=== PATIENT | female | born 1990 | race Caucasian/White ===

== ENCOUNTER 2020-03-18 09:09 | Outpatient (CLI) | payer OTHER, SELFPAY ==
--- NOTE | ~2020-03-18 | US_ITS ---
EXAMINATION: US pelvic complete w TV DATE: 03/18/2020 09:54 INDICATION: Missing IUD strings TECHNIQUE: Multiple transabdominal and endovaginal sonographic images of the pelvis were obtained. COMPARISON: 10/29/2015 FINDINGS: The uterus measures 9 x 3.3 x 4.2 cm. The endometrial complex measures 4 mm. An IUD is pres ent in the uterus in expected position. The right ovary measures 3.4 x 2.2 x 2.7 cm. The left ovary m easures 2.1 x 2.2 x 2.5 cm. There is normal vascular flow in the ovaries. There is no free fluid in t he pelvis. IMPRESSION: 1. IUD in expected position. Reviewed, dictated and finalized at location A.
== END 2020-03-18 09:10 | disposition home or self-care (01) ==
PROVIDERS: PCP Physician Assistant; Visit Provider Nurse Practitioner
DX: Z30.431 Encounter for routine checking of intrauterine contraceptive device (principal)
CPT/HCPCS: 76830; 76856

== ENCOUNTER 2021-05-09 19:56 | Outpatient (CLI) | payer OTHER, SELFPAY ==
--- NOTE | ~2021-05-09 | XR_ITS ---
EXAMINATION: XR foot RT min 3V DATE: 05/09/2021 20:14 INDICATION: Right foot dorsal pain. TECHNIQUE: 4 views of right foot were obtained. COMPARISON: None. FINDINGS: Bone alignment is normal. No fracture. Joint spaces are well maintained. IMPRESSION: 1. Normal right foot. Reviewed, dictated and finalized at location A. IMPRESSION: 1. Normal right foot.
== END 2021-05-09 19:57 | disposition home or self-care (01) ==
LOC: CHSIMG 19:58
PROVIDERS: PCP Physician Assistant; Visit Provider Physician Assistant
DX: M79.671 Pain in right foot (principal)
CPT/HCPCS: 73630

== ENCOUNTER 2021-11-11 12:03 | Outpatient (CLI) | payer OTHER, SELFPAY ==
[2021-11-11 12:19] LABS: Basophils Absolute Auto 0.04 K/mm3 (0.00-0.10); Basophils Percent Auto 0.3 % (0.0-1.0); Eosinophils Absolute Auto 0.14 K/mm3 (0.02-0.50); Hematocrit 35.4 % (35.0-49.0); Immature Granulocyte Absolute 0.06 K/mm3 (0.00-0.00); Immature Granulocyte Percent A 0.4 % (0.0-0.0); Lymphocytes Absolute Auto 1.47 K/mm3 (1.10-4.50); Lymphocytes Percent Auto 10.7 % (18.0-42.0); Mean Corpuscular HGB Conc 33.9 g/dL (32.0-36.0); Mean Corpuscular Hemoglobin 31.3 pg (27.0-31.0); Mean Corpuscular Volume 92.2 fL (78.0-102.0); Mean Platelet Volume 9.6 fl (9.2-11.8); Monocytes Absolute Auto 0.63 K/mm3 (0.10-0.90); Monocytes Percent Auto 4.6 % (2.0-11.0); Neutrophils Absolute Auto 11.5 K/mm3 (1.7-7.2); Platelet Count Result 181 K/mm3 (150-420); Red Blood Count 3.84 M/mm3 (4.20-5.40); Red Cell Distribution Width 13.1 % (11.6-14.4); White Blood Count 13.8 K/mm3 (4.8-10.8)
[2021-11-11 12:28] LABS: Hemoglobin A1C 5.2 % (<5.7)
[2021-11-11 13:25] LABS: HIV 1 P24 AG Negative (Negative); HIV 1/2 AB Negative (Negative)
[2021-11-15 12:59] LABS: Rubella IgG Antibody 1.05 Index
[2021-11-15 13:54] LABS: RPR Screen Non-Reactive (Non-Reactive)
[2021-11-15 14:32] LABS: Vitamin D 25 Hydroxy 35 ng/mL (30-100)
[2021-11-16 03:42] LABS: Hepatitis B Surface Antigen Nonreactive (Nonreactive); Hepatitis C Signal to Cutoff 0.01 ratio (<1.00); Hepatitis C Virus Antibody Nonreactive (Nonreactive)
== END 2021-11-11 12:04 | disposition home or self-care (01) ==
LOC: CHSLAB 12:05
PROVIDERS: PCP Physician Assistant; Visit Provider Obstetrics & Gynecology Gynecology
DX: Z36.9 Encounter for antenatal screening, unspecified (principal)
CPT/HCPCS: 36415; 82306; 83036; 85025; 86592; 86703; 86762; 86850; 86900; 86901

== ENCOUNTER 2021-11-15 14:51 | Outpatient (CLI) | payer OTHER, SELFPAY ==
--- NOTE | ~2021-11-15 | US_ITS ---
EXAMINATION: US OB /maternal detail DATE: 11/15/2021 15:37 INDICATION: Uncertain dating of . OB anatomy. TECHNIQUE: Multiple obstetric sonographic images performed. FINDINGS: There is a single living fetus in breech presentation. The placenta is anterior fundal. Normal amnio tic fluid volume. JENSEN measures 13.6 cm. Which is normal. (5th%-95%: 9.3-21.2 cm at 20 weeks estimate d gestational age) heart rate of 155 beats per minute. The following anatomy was identified as normal: Ventricles, choroid plexus, falx and cava septum pellucidum Cerebellum and cisterna magna Nuchal fold Upper lip Spine Heart Diaphragm Stomach Kidneys Bladder 3 vessel cord and cord insertion Bilateral upper and lower extremities including hands and feet The following biometric data were obtained: BPD: 4.8 cm -> 20 weeks 4 days Head circumference: 18.0 cm -> 20 weeks 3 days Abdominal circumference: 15.3 cm -> 20 weeks 3 days Femur length: 3.3 cm -> 20 weeks 3 days These measurements are concordant. Head circumference to abdominal circumference ratio: 1.17 (normal range 1.07-1.25). Estimated weight: 355 g (+/-) 53 g. or 13 oz. (+/-) 2 oz. IMPRESSION: 1. Single living fetus with breech presentation with heart rate of 155 bpm. 2. Gestational age by ultrasound of 20 weeks 3 day(s) (+/-) 1 week 3 day(s) with ultrasound estimat ed date of delivery (FRED) of 04/01/2022. Please correlate with clinical information or earlier ultraso unds for most accurate FRED. 3. Normal survey. 4. Normal amniotic fluid index of 13.6 cm Reviewed, dictated and finalized at location A. STRIPPER IMPRESSION: 1. Single living fetus with breech presentation with heart rate of 155 b pm. 2. Gestational age by ultrasound of 20 weeks 3 day(s) (+/-) 1 week 3 day(s) w ith ultrasound estimated date of delivery (FRED) of 04/01/2022. Please correlate with clinical information or earlier ultrasounds for most accurate FRED. 3. Normal survey. 4. Normal amniotic fluid index of 13.6 cm
== END 2021-11-15 14:52 | disposition home or self-care (01) ==
LOC: CHSIMG 14:52
PROVIDERS: PCP Physician Assistant; Visit Provider Obstetrics & Gynecology Gynecology
DX: Z36.87 Encounter for antenatal screening for uncertain dates (principal); Z36.9 Encounter for antenatal screening, unspecified
CPT/HCPCS: 76805

== ENCOUNTER 2022-03-02 18:26 | Outpatient (CLI) | payer OTHER, SELFPAY ==
[2022-03-02 18:55] LABS: Hematocrit 29.5 % (35.0-49.0); Hemoglobin 9.4 g/dL (12.0-15.0); Mean Corpuscular HGB Conc 31.9 g/dL (32.0-36.0); Mean Corpuscular Hemoglobin 27.3 pg (27.0-31.0); Mean Corpuscular Volume 85.8 fL (78.0-102.0); Mean Platelet Volume 10.6 fl (9.2-11.8); Platelet Count Result 157 K/mm3 (150-420); Red Blood Count 3.44 M/mm3 (4.20-5.40); Red Cell Distribution Width 13.1 % (11.6-14.4); White Blood Count 9.5 K/mm3 (4.8-10.8)
[2022-03-09 07:30] LABS: Vitamin D 25 Hydroxy 36 ng/mL (30-100)
== END 2022-03-02 18:27 | disposition home or self-care (01) ==
PROVIDERS: PCP Obstetrics & Gynecology Gynecology; Visit Provider Advanced Practice Midwife
DX: E79.9 Disorder of purine and pyrimidine metabolism, unspecified (principal); E55.9 Vitamin D deficiency, unspecified
CPT/HCPCS: 36415; 82306; 85027